=== PATIENT | male | born 1975 | race Hispanic/Latino ===

== ENCOUNTER 2019-04-18 10:05 | Outpatient (CLI) | payer OTHER ==
--- NOTE | 2019-04-18 11:56 | MRI ---
MRI Lower Ext Jt Lt W Con History: M 23.562 posterior left knee joint pain Comparison: None. Findings: Medial meniscus: Mild intrameniscal degeneration posterior horn medial meniscus without dis placed tear Lateral meniscus: Intact Mild intraligamentous degeneration anterior cruciate ligament. Posterior cruciate ligament is intact. Medial collateral ligament and lateral collateral ligaments are intact. Extensor mechanism: Quadriceps tendon, patella, and patellar tendon are intact Cartilage: Patellofemoral compartment: Intact Medial compartment: Low-grade chondral fraying central weightbearing surface medial femoral condyle a nd medial tibial plateau Lateral compartment: Intact Muscles: High-grade partial tear origin medial head gastrocnemius with surrounding hemorrhage. Latera l head gastrocnemius is intact. Soft tissues: Mild tendinosis semimembranosus insertion. There is a popliteal cyst with caudal dehisc ence. Impression: 1. High-grade partial tear of the origin of the medial head gastrocnemius from the posterior femoral condyle with interstitial delamination and adjacent hemorrhage. 2. Popliteal cyst containing debris with caudal dehiscence. 3. Mild intraligamentous degeneration of the anterior cruciate ligament. 4. Low-grade intrameniscal degeneration posterior horn medial meniscus.
== END 2019-04-18 10:06 | disposition home or self-care (01) ==
LOC: SCSMRI 10:05
PROVIDERS: ATTEND Family Medicine
DX: M23.8X2 Other internal derangements of left knee (principal); M25.562 Pain in left knee; M71.22 Synovial cyst of popliteal space [Baker], left knee

== ENCOUNTER 2019-04-29 22:12 | Emergency (ER) | payer OTHER ==
[2019-04-29] MEDS ORDERED: Lidocaine 1% (PF) 30 ML VIAL ONE (22:28)
== END 2019-04-29 22:43 | disposition home or self-care (01) ==
LOC: ERS 22:12
DX: L02.415 Cutaneous abscess of right lower limb (principal); I10 Essential (primary) hypertension; F32.9 Major depressive disorder, single episode, unspecified; Z79.82 Long term (current) use of aspirin; Z79.51 Long term (current) use of inhaled steroids
CPT/HCPCS: 10060; J2001